=== PATIENT | female | born 1980 | race Caucasian/White ===

== ENCOUNTER 2019-02-09 13:23 | Inpatient (IN) ==
[2019-02-09] MEDS ORDERED: PHENOBARBITAL IV PRN (16:26)
[2019-02-09] MEDS ORDERED: MAALOX PLUS LIQUID PO PRN (16:26)
[2019-02-09] MEDS ORDERED: TYLENOL PO PRN (16:26)
[2019-02-09] MEDS ORDERED: SENOKOT PO PRN (16:26)
[2019-02-09] MEDS ORDERED: DESYREL PO PRN (16:26)
[2019-02-09] MEDS ORDERED: ZOFRAN IV PRN (16:26)
[2019-02-09] MEDS ORDERED: ZOFRAN ODT PO PRN (16:26)
[2019-02-09] MEDS ORDERED: IMODIUM PO PRN ×2 (16:26)
[2019-02-09] MEDS ORDERED: SEROQUEL PO PRN (16:26)
[2019-02-09] MEDS ORDERED: TUBERSOL ID ONE (16:26)
[2019-02-09] MEDS ORDERED: NICOTINE GUM BUCCAL PRN (16:26)
[2019-02-09] MEDS ORDERED: MOTRIN PO PRN (16:26)
[2019-02-09] MEDS ORDERED: D5W 1,000 ML IV PRN (16:26)
[2019-02-09] MEDS ORDERED: ZOFRAN IM PRN (16:26)
[2019-02-09] MEDS ORDERED: NICODERM PATCH TD PRN (16:26)
[2019-02-09] MEDS ORDERED: DULCOLAX PR PRN (16:26)
[2019-02-09 17:33] LABS: URINE SOURCE CLEAN CATCH
[2019-02-09 17:36] LABS: BILIRUBIN URINE NEGATIVE (NEGATIVE); BLOOD URINE TRACE (NEGATIVE); CLARITY CLEAR (CLEAR); COLOR YELLOW; GLUCOSE URINE NEGATIVE (NEGATIVE); KETONE URINE 2+(Moderate) mg/dL (NEGATIVE); LEUKOCYTES URINE NEGATIVE (NEGATIVE); NITRITE URINE NEGATIVE (NEGATIVE); PH URINE 6.5; PROTEIN URINE NEGATIVE (NEGATIVE); UROBILINOGEN URINE NORMAL
[2019-02-09 17:42] LABS: URINE BACTERIA 1+ /HFP; URINE EPITHELIAL CELLS >10 /HPF (<10); URINE RBC <10 /HPF (<10); URINE WBC <10 /HPF (<10)
[2019-02-09 17:46] LABS: UR AMPHETAMINES QUAL NONE DETECTED (NONE DETECT); UR BARBITUATES QUAL NONE DETECTED (NONE DETECT); UR BENZODIAZEPIN QUAL PRESUMPTIVE POSITIVE (NONE DETECT); UR CANNABINOIDS QUAL PRESUMPTIVE POSITIVE (NONE DETECT); UR COCAINE QUAL NONE DETECTED (NONE DETECT); UR METHADONE QUAL NONE DETECTED (NONE DETECT); UR METHAMPHETAMINE QUAL NONE DETECTED (NONE DETECT); UR OPIATES QUAL NONE DETECTED (NONE DETECT); UR OXYCODONE QUAL NONE DETECTED (NONE DETECT); UR PCP QUAL NONE DETECTED (NONE DETECT); UR PROPOXYPHENE QUAL NONE DETECTED (NONE DETECT); UR TCA QUAL NONE DETECTED (NONE DETECT)
[2019-02-09] MEDS ORDERED: SALINE LOCK IV FLUID XX ONE (17:53)
[2019-02-09 18:12] LABS: HEMATOCRIT 35.9 % (37.0-47.0); HEMOGLOBIN 11.7 g/dL (12.0-16.0); MCH 29.5 PG (27-31); MCHC 32.6 g/dL (33-37); MCV 90.4 FL (81-99); MPV 9.9 FL (7.4-10.4); RBC 3.97 XMIL (4.2-5.4); RDW 13.6 % (11.5-14.5); WBC 12.95 X1000 (4.8-10.8)
[2019-02-09 18:37] LABS: AGAP 13; ALBUMIN 4.7 g/dL (3.5-5.0); ALKALINE PHOSPHATASE 29 U/L (32-104); AMYLASE 61 U/L (20-200); BUN 10 mg/dL (8-22); CALCIUM 9.2 mg/dL (8.8-10.2); CHLORIDE 103 mmol/L (98-107); COSMO 271; CREATININE 0.7 mg/dL (0.5-0.9); ESTIMATED GFR > 60; GLUCOSE 96 mg/dL (70-104); GOT 21 U/L (10-30); GPT 21 U/L (10-36); LIPASE 39 U/L (13-60); SODIUM 136 mmol/L (136-145); TCO2 20 mmol/L (25-35); TOTAL PROTEIN 7.3 g/dL (6.3-8.3)
[2019-02-09 18:44] LABS: INR 0.94
[2019-02-09] MEDS: LIBRIUM PO SCH ×2 (18:49→23:43)
[2019-02-09] MEDS: SINGULAIR PO SCH (22:10)
[2019-02-10] MEDS: LIBRIUM PO SCH ×3 (05:49→17:29)
[2019-02-10] MEDS ORDERED: PROTONIX PO SCH (07:00)
[2019-02-10] MEDS ORDERED: M.V.I.-12 10 ML, FOLIC ACID 1 MG, MAGNESIUM SULFATE 1 GM, THIAMINE 100 MG in NS 1,000 ML IV ONE (08:00)
[2019-02-10] MEDS: FOLIC ACID PO SCH (08:02)
[2019-02-10] MEDS: THERA M PLUS PO SCH (08:02)
[2019-02-10] MEDS: VITAMIN B-1 PO SCH (08:02)
[2019-02-10] MEDS ORDERED: NICODERM PATCH TD PRN (08:03)
[2019-02-10] MEDS: NICODERM PATCH TD SCH (09:28)
[2019-02-10] MEDS: SINGULAIR PO SCH (20:30)
[2019-02-11] MEDS: LIBRIUM PO SCH ×4 (02:22→18:05)
[2019-02-11] MEDS: THERA M PLUS PO SCH (08:53)
[2019-02-11] MEDS: NICODERM PATCH TD SCH (08:53)
[2019-02-11] MEDS: VITAMIN B-1 PO SCH (08:53)
[2019-02-11] MEDS: FOLIC ACID PO SCH (08:53)
--- NOTE | 2019-02-11 09:17 | PROGRESS NOTE ---
DATE: 02/10/2019 SUBJECTIVE: The patient notes that she feels a little better. She is having less tremors, less myalgias. Denies fevers or chills. Notes that her nausea has improved. PHYSICAL EXAMINATION: Vital Signs: Reviewed. Temperature 97.9 degrees, pulse 81, respiratory rate 18, blood pressure 155/76. General: Patient is pleasant. She is in no respiratory distress. She is still somewhat ill-appearing. She is having mild tremors. HEENT: Normocephalic. Neck: Supple. Cardiovascular: Regular rate. No murmurs. Chest: Clear. Abdomen: Soft. Extremities: Moves all extremities. ASSESSMENT: 1. Nausea and vomiting, abdominal pain. 2. Myalgias. 3. Tremors. 4. Asthma. 5. Bipolar. 6. Alcohol abuse withdrawal and stabilization. PLAN: We will continue patient in the hospital. Continue to follow. We will wean Librium as tolerated. Continue counseling. Further orders as needed. cc: Uday Dominguez MD
[2019-02-11] MEDS: SINGULAIR PO SCH (20:37)
[2019-02-12] MEDS: LIBRIUM PO SCH (08:28)
[2019-02-12] MEDS: FOLIC ACID PO SCH (08:29)
[2019-02-12] MEDS: THERA M PLUS PO SCH (08:29)
[2019-02-12] MEDS: VITAMIN B-1 PO SCH (08:29)
[2019-02-12] MEDS: NICODERM PATCH TD SCH (08:29)
--- NOTE | 2019-02-12 16:07 | PROGRESS NOTE ---
DATE: 02/11/2019 SUBJECTIVE: The patient notes that she is feeling better, still having some nausea and abdominal pain. Tremors are improving. Denies any fevers, headaches. Started to sleep better last night. Hopefully she can eat breakfast this morning. PHYSICAL EXAMINATION: Vital Signs: Reviewed. Temperature is 97.8 degrees, pulse 88, respiratory rate 18, blood pressure 110/56. General: The patient is awake, alert, currently in no respiratory distress. HEENT: Normocephalic. Neck: Supple. Cardiovascular: Regular rate. No murmurs. Chest: Clear. Abdomen: Soft. Extremities: Moves all extremities. ASSESSMENT: 1. Nausea and vomiting. 2. Abdominal pain. 3. Myalgias. 4. Paresthesias. 5. Paroxysmal sweating. 6. Opiate abuse withdrawal and stabilization. 7. Alcohol abuse withdrawal and stabilization. PLAN: We will continue the patient in the hospital today. Continue to wean Librium down to 20 t.i.d. if she tolerates. Hopefully she can discharge home tomorrow. We will continue [*]. cc: Uday Dominguez MD
[2019-02-12 16:53] VITALS: BP 128/72
--- NOTE | 2019-02-12 20:04 | HISTORY AND PHYSICAL ---
CHIEF COMPLAINT: Nausea. HISTORY OF PRESENT ILLNESS: The patient is a 38-year-old female who presented [facility] secondary to nausea, vomiting and abdominal pain. She states she has been abusing alcohol, has been trying to stop but her withdrawal symptoms of tremors and paresthesias become too severe, and she has to start drinking to alleviate symptoms. SOCIAL HISTORY: The patient is . She is currently employed at [employer] in the [place]. She lives in [place]. PAST MEDICAL HISTORY: Hypertension, bipolar, asthma, history of blackouts that are alcohol- related. MEDICATIONS: Lamictal 250, Abilify 10, albuterol inhaler as needed, Singulair 10, Symbicort daily. ALLERGIES: No known drug allergies, although SSRIs trigger her cassidy. REVIEW OF SYSTEMS: CIWA score is 24 secondary to mild tremors, easily startled. She is anxious, nervous, unable sit still. She has sensitivity to light. She has been having frequent episodes of sweating. She has had suicide attempt in 1995 by attempted overdose. She has had suicidal ideations off and on her whole life, typically worse when she is not on her medications or when she is heavily drinking. Currently, she denies any suicide ideations. Notes the last time was approximately 6 weeks ago. Notes that she is having tremors, myalgias, unable to sit still, decreased oral intake. She is having nausea. Denies any diarrhea, constipation, melena or hematochezia. Denies dysuria, frequency, urgency, hesitancy, polyuria or polydipsia. Denies skin rashes, weight loss or weight gain. SUBSTANCE ABUSE HISTORY: She was in treatment for depression in 2000 two different times in [place]. Again in 2006 she was at [facility]. In 2016 she was at [facility] outpatient for the next year. She has not been in an alcohol treatment facility in the past. She started drinking as early as age 11; currently drinks at least half a pint of tequila a day and usually a bottle of wine as well. She started marijuana at 13, currently smokes 1-2 times a day. She started Ativan at 19, currently only takes as directed. She started cocaine at 15, has not used in 5-6 years. Started acid at 13, has not used since she was 17. Started opiates at 17, has not used in 6 months. Typically only takes as prescribed. Notes she has never really abused those. She started smoking at 15, currently smokes a pack a day. FAMILY HISTORY: Noncontributory. PHYSICAL EXAMINATION: VITAL SIGNS: Reviewed. GENERAL: The patient is awake, alert. She is in no current respiratory distress. HEENT: Normocephalic. NECK: Supple. CARDIOVASCULAR: Regular rate. No murmurs. CHEST: Clear, nonlabored. ABDOMEN: Soft, nondistended, nontender. EXTREMITIES: Moves all extremities. NEUROLOGIC: No focal changes. SKIN: Warm and dry. No rashes. ASSESSMENT: 1. Nausea and vomiting. 2. Abdominal pain. 3. Myalgias. 4. Paresthesias. 5. Paroxysmal sweating. 6. Alcohol abuse, withdrawal and stabilization. 7. History of polysubstance abuse. 8. Chronic anxiety, depression with bipolar features. 9. Asthma. PLAN: We will admit the patient the hospital on high-dose Librium taper. Continue to follow. We will check a urine test, as she does think she is . We will continue further orders as needed. Begin counseling. cc: Uday Dominguez MD
[2019-02-12] MEDS ORDERED: LAMICTAL PO SCH (21:00)
[2019-02-12] MEDS ORDERED: LIBRIUM PO SCH (21:00)
[2019-02-12] MEDS ORDERED: ABILIFY PO SCH (21:00)
--- NOTE | 2019-02-13 14:31 | DISCHARGE SUMMARY ---
ADMISSION DATE: 02/09/2019 DISCHARGE DATE: 02/12/2019 DISCHARGE DIAGNOSIS: 1. Nausea, vomiting. 2. Abdominal pain. 3. Myalgias. 4. Paresthesias. 5. Paroxysmal sweating. 6. Alcohol abuse withdrawal and stabilization. CONSULTATIONS: None. PROCEDURES: None. BRIEF HOSPITAL COURSE: The patient is a 38-year-old female who presented to [facility] secondary to nausea, vomiting, abdominal pain, tremors, and myalgias. She noted that she was having significant withdrawal symptoms and could not tolerate it at home and had to keep drinking to prevent said symptoms. DISPOSITION ON DISCHARGE: Patient is awake, alert. She is in no distress. She has been able to wean down on Librium. We discussed with her the use of medication assisted therapy. She will use naltrexone on discharge as her insurance will not pay for Vivitrol. Greater than 30 minutes was spent in total care. cc: Uday Dominguez MD
== END 2019-02-12 17:18 | disposition home or self-care (01) | DRG 897 ==
LOC: P.DIRADM 15:36 → P.MEDSURG 15:46
PROVIDERS: ADMIT Family Medicine; ATTEND Family Medicine